=== PATIENT | male | born 1990 | race Two or more races ===

== ENCOUNTER 2022-06-26 12:29 | Emergency (ER) | payer OTHER ==
[~2022-06-26] VITALS: Ht 182.9 cm; Wt 89.8 kg
[2022-06-26 12:38] VITALS: BP 124/82
--- NOTE | 2022-06-26 12:41 | NUR ---
fell from [facility] last night; c/o right elbow pain sent by the urgent care the results of the right elbow x ray showed + for non displaced radial head fracture. currently - right shoulder sling applied by the urgent care.
[2022-06-26] MEDS ORDERED: HYDR-4209 PO (13:03)
--- NOTE | 2022-06-26 13:12 | NUR ---
Patient discharged to home in stable condition. Written and verbal after care instructions given. Patient verbalizes understanding of instruction.
== END 2022-06-26 13:11 | disposition home or self-care (01) ==
LOC: ER 12:43
DX: S52.124A Nondisplaced fracture of head of right radius, initial encounter for closed fracture (principal); F90.9 Attention-deficit hyperactivity disorder, unspecified type; V00.131A Fall from skateboard, initial encounter; Y93.51 Activity, roller skating (inline) and skateboarding; Y92.331 Roller skating rink as the place of occurrence of the external cause; Y99.8 Other external cause status